=== PATIENT | female | born 1950 ===

== ENCOUNTER 2021-02-19 07:37 | Outpatient (CLI) | payer OTHER | END 2021-02-19 07:38 | disposition home or self-care (01) | LOC: NUCLEAR 07:37 | DX: R10.13 Epigastric pain (principal) | CPT/HCPCS: 78226; A9537 ==

== ENCOUNTER → 2024-10-18 | Emergency (ER) | payer OTHER ==
[~2024-10-18] VITALS: Ht 175.3 cm; Wt 79.4 kg
[~2024-10-18] MED LIST: ALBUTEROL SULFATE 3 ML/2.5 MG AMPUL.NEB IH ONE; ALBUTEROL SULFATE 3 ML/2.5 MG AMPUL.NEB IH SCH; BUDESONIDE 0.5 MG/2 ML AMPUL.NEB IH ONE; BUDESONIDE 0.5 MG/2 ML AMPUL.NEB IH STA; EZALLOR SPRINKLE5 MG; GLUMETZA500 MG; GUAIFENESIN 200 MG/10 ML BLIST.PACK PO ONE; GUAIFENESIN 200 MG/10 ML BLIST.PACK PO STA
[2024-10-18 13:10] LABS: HEMOGLOBIN 14.4 g/dL (12.0-15.00); MEAN CELL VOLUME 84.2 fL (80.00-100.00); MEAN CORPUSCULAR HEMOGLOBIN 29.6 pg (27.00-32.0); MEAN CORPUSCULAR HGB CONC 35.1 g/dl (32.0-36.0); PLATELET COUNT 238 K/uL (150-450); RED BLOOD COUNT 4.87 M/uL (4.00-6.00)
[2024-10-18 13:22] LABS: CALCIUM 9.3 mg/dL (8.5-10.1); CREATININE SERUM 0.82 mg/dL (0.55-1.02); GFR 68.15; POTASSIUM 3.9 mEq/L (3.5-5.1)
== END | disposition home or self-care (01) ==
LOC: ER 08:07
PROVIDERS: Emergency Medicine
DX: J45.901 Unspecified asthma with (acute) exacerbation (principal); I10 Essential (primary) hypertension; E11.9 Type 2 diabetes mellitus without complications; Z79.84 Long term (current) use of oral hypoglycemic drugs